=== PATIENT | female | born 1925 | race Caucasian/White ===

== ENCOUNTER 2016-07-17 11:18 | Outpatient (CLI) | payer MEDICARE ==
[2016-07-17 12:36] LABS: #Basophils 0.1 thou/uL (0.0-0.2); #Eosinphils 0.6 thou/uL (0.0-0.7); #Lymphocytes 1.7 thou/uL (1.20-3.40); #Monocytes 0.6 thou/uL (0.11-0.59); #Neutrophils 4.5 thou/uL (1.40-6.50); %Basophils 0.8 % (0.0-1.0); %Eosinophils 7.9 % (0.0-10.0); %Lymphocytes 22.4 % (21.0-51.0); %Monocytes 8.1 % (0.0-10.0); Hematocrit 46.1 % (36.0-47.0); Mean Platelet Volume 8.7 fL (7.4-10.4); Red Blood Cell (RBC) Count 5.23 mill/uL (4.20-5.40); White Blood Cell (WBC) Count 7.5 thou/uL (4.8-10.8)
[2016-07-17 12:47] LABS: ALT (SGPT) 21 U/L (0-55); AST (SGOT) 24 U/L (5-34); Alkaline Phosphatase 106 U/L (40-150); Anion Gap 13 mmol/L (10-20); BUN (Urea Nitrogen) 13 mg/dL (9.8-20.1); Bilirubin, Direct 0.6 mg/dL (0.1-0.3); Bilirubin, Total 1.8 mg/dL (0.2-1.2); Calc. Creatinine Clearance 0 mL/min (70-130); Calcium 9.5 mg/dL (7.8-10.44); Carbon Dioxide 24 mmol/L (23-31); Chloride 105 mmol/L (98-107); Estimated GFR-MDRD 76; LDL Cholesterol, Calculated 60 mg/dL; Protein, Total 7.1 g/dL (5.8-8.1)
[2016-07-17 12:53] LABS: Bilirubin Negative (Negative); Blood, Urine Negative (Negative); Glucose, Urine (Dipstick) Negative (Negative); Ketone, Urine Negative (Negative); Nitrite Negative (Negative); Protein, Urine (Dipstick) Negative (Neg-Trace); Urobilinogen 0.2 mg/dL (0.2-1.0)
[2016-07-17 13:08] LABS: Hemoglobin A1c 6.1 % (4.0-6.0)
[2016-07-17 13:27] LABS: Bacteria/HPF Rare-Few HPF (None Seen); RBC/HPF None Seen HPF (0-3); Squamous Epithelial 0-3 HPF (0-3); WBC/HPF 0-3 HPF (0-3)
== END 2016-07-17 11:19 | disposition home or self-care (01) ==
LOC: NAVSJIPCSP 11:18
PROVIDERS: ATTEND Family Medicine
DX: I10 Essential (primary) hypertension (principal); E78.2 Mixed hyperlipidemia; K21.9 Gastro-esophageal reflux disease without esophagitis; N39.0 Urinary tract infection, site not specified; Z79.899 Other long term (current) drug therapy
CPT/HCPCS: 36415; 80048; 80061; 80076; 81003; 81015; 83036; 84443; 85025

== ENCOUNTER 2016-11-20 10:33 | Outpatient (CLI) | payer MEDICARE ==
[2016-11-20 12:28] LABS: #Basophils 0.1 thou/uL (0.0-0.2); #Eosinphils 0.5 thou/uL (0.0-0.7); #Lymphocytes 1.6 thou/uL (1.20-3.40); #Monocytes 0.6 thou/uL (0.11-0.59); %Basophils 1.2 % (0.0-1.0); %Eosinophils 7.8 % (0.0-10.0); %Lymphocytes 23.7 % (21.0-51.0); %Monocytes 8.6 % (0.0-10.0); %Neutrophils 58.7 % (42.0-75.0); Hemoglobin 14.6 g/dL (12.0-16.0); Mean Corpuscular Volume 87.3 fl (81.0-99.0); Mean Platelet Volume 9.1 fL (7.4-10.4); Platelet Count 220 thou/uL (130-400); Red Blood Cell (RBC) Count 5.39 mill/uL (4.20-5.40); White Blood Cell (WBC) Count 6.8 thou/uL (4.8-10.8)
[2016-11-20 13:03] LABS: Hemoglobin A1c 6.1 % (4.0-6.0)
[2016-11-20 13:04] LABS: ALT (SGPT) 36 U/L (8-55); AST (SGOT) 33 U/L (5-34); Albumin 4.3 g/dL (3.4-4.8); Alkaline Phosphatase 106 U/L (40-150); Anion Gap 16 mmol/L (10-20); BUN (Urea Nitrogen) 14 mg/dL (9.8-20.1); Bilirubin, Direct 0.6 mg/dL (0.1-0.3); Bilirubin, Total 1.8 mg/dL (0.2-1.2); Calc. Creatinine Clearance 0 mL/min (70-130); Calcium 9.4 mg/dL (7.8-10.44); Carbon Dioxide 25 mmol/L (23-31); Cardiac Risk 2.7 (Less than 4.5); Chloride 102 mmol/L (98-107); Cholesterol 180 mg/dl (< 200 Desired); Estimated GFR-MDRD 72; Glucose 108 mg/dL (83-110); HDL Cholesterol 67 mg/dL (>60 Neg Risk); LDL Cholesterol, Calculated 80 mg/dL; Potassium 4.5 mmol/L (3.5-5.1); Protein, Total 6.9 g/dL (6.0-8.3); Sodium 138 mmol/L (136-145); Triglycerides 164 mg/dL (Less than 150)
[2016-11-20 14:05] LABS: Bilirubin Negative (Negative); Blood, Urine Trace (Negative); Clarity Clear (Clear); Glucose, Urine (Dipstick) Negative (Negative); Leukocyte Small (Negative); Nitrite Negative (Negative); Protein, Urine (Dipstick) Negative (Neg-Trace); Urobilinogen 0.2 mg/dL (0.2-1.0)
[2016-11-20 14:19] LABS: RBC/HPF 0-3 HPF (0-3)
[2016-11-20 14:20] LABS: Bacteria/HPF Rare-Few HPF (None Seen); Other Microscopic Description NO; Squamous Epithelial 0-3 HPF (0-3)
== END 2016-11-20 10:34 | disposition home or self-care (01) ==
LOC: NAVSJIPCSP 10:33
PROVIDERS: ATTEND Family Medicine
DX: E78.2 Mixed hyperlipidemia (principal); I10 Essential (primary) hypertension; R33.9 Retention of urine, unspecified; K21.9 Gastro-esophageal reflux disease without esophagitis; N39.0 Urinary tract infection, site not specified; Z79.899 Other long term (current) drug therapy
CPT/HCPCS: 36415; 80048; 80061; 80076; 81003; 81015; 83036; 84443; 85025

== ENCOUNTER 2016-12-11 20:41 | Emergency (ER) | payer MEDICARE ==
[~2016-12-11 20:41] MED LIST: Iopamidol 370 76% 100 ML VIAL ONE
[2016-12-11] MEDS ORDERED: Ondansetron HCl/PF 4 MG/2 ML Vial ONE (21:10)
[2016-12-11 21:32] LABS: ALT (SGPT) 66 U/L (8-55); AST (SGOT) 74 U/L (5-34); Albumin 4.2 g/dL (3.4-4.8); Alkaline Phosphatase 136 U/L (40-150); Anion Gap 17 mmol/L (10-20); BUN (Urea Nitrogen) 16 mg/dL (9.8-20.1); Bilirubin, Total 1.6 mg/dL (0.2-1.2); Calc. Creatinine Clearance 0 mL/min (70-130); Carbon Dioxide 21 mmol/L (23-31); Chloride 101 mmol/L (98-107); Estimated GFR-MDRD 81; Globulin 3.1 g/dL (2.4-3.5); Glucose 150 mg/dL (83-110); Potassium 3.5 mmol/L (3.5-5.1); Protein, Total 7.3 g/dL (6.0-8.3); Sodium 135 mmol/L (136-145)
[2016-12-11 21:34] LABS: #Basophils 0.1 thou/uL (0.0-0.2); #Eosinphils 0.3 thou/uL (0.0-0.7); #Lymphocytes 1.1 thou/uL (1.20-3.40); #Monocytes 0.5 thou/uL (0.11-0.59); #Neutrophils 10.8 thou/uL (1.40-6.50); %Basophils 0.7 % (0.0-1.0); %Eosinophils 2.5 % (0.0-10.0); %Lymphocytes 8.2 % (21.0-51.0); %Monocytes 3.8 % (0.0-10.0); %Neutrophils 84.9 % (42.0-75.0); CKMB 1.5 ng/mL (0-6.6); Hemoglobin 14.2 g/dL (12.0-16.0); Mean Corpuscular HGB CONC 32.5 g/dL (32.0-36.0); Mean Corpuscular Hemoglobin 27.4 pg (27.0-31.0); Mean Corpuscular Volume 84.2 fl (81.0-99.0); Mean Platelet Volume 9.1 fL (7.4-10.4); Platelet Count 177 thou/uL (130-400); RBC Distribution Width 12.4 % (11.5-14.5); Red Blood Cell (RBC) Count 5.17 mill/uL (4.20-5.40); Troponin I 0.024 ng/mL (< 0.028); White Blood Cell (WBC) Count 12.8 thou/uL (4.8-10.8)
--- NOTE | 2016-12-11 21:58 | RAD ---
PORTABLE SEMIUPRIGHT FRONTAL CHEST RADIOGRAPH 12/11/16 COMPARISON: 03/30/14. HISTORY: Nausea, chills. FINDINGS: Hazy increased linear density is noted within the left lung base, stable. There is increased linear interstitial density within both lungs, stable as well. There is no pneumothorax, pleural fluid, foc al consolidation, or alveolar edema. IMPRESSION: Chronic linear densities as detailed above, most prominent within the left lung base. No acute findi ngs. POS: [facility]
[2016-12-11 22:06] LABS: Bilirubin Negative (Negative); Blood, Urine Trace (Negative); Clarity Clear (Clear); Glucose, Urine (Dipstick) Negative (Negative); Leukocyte Large (Negative); Nitrite Negative (Negative); Protein, Urine (Dipstick) 30 mg/dL (Neg-Trace); Urobilinogen 0.2 mg/dL (0.2-1.0)
[2016-12-11 22:23] LABS: Bacteria/HPF Rare-Few HPF (None Seen); RBC/HPF 0-3 HPF (0-3); Renal Epithelial 0-3 HPF (0-3); Squamous Epithelial 0-3 HPF (0-3); WBC/HPF 0-3 HPF (0-3)
[2016-12-11] MEDS ORDERED: metroNIDAZOLE 500 MG TAB ONE (23:00)
[2016-12-11] MEDS ORDERED: Amoxicillin/Potassium Clav 875 MG TAB ONE (23:00)
--- NOTE | 2016-12-11 23:35 | CT ---
CT OF THE ABDOMEN AND PELVIS 12/11/16 COMPARISON: 06/27/12 HISTORY: Nausea, chills, lower abdominal pain. TECHNIQUE: Serial axial CT imaging is obtained at 5 mm intervals from lung bases through pubic symphysis with i ntravenous contrast. Coronal reformatted imaging obtained. FINDINGS: The lack of oral contrast limits assessment of the bowel. The imaged lung bases are grossly unremarkable. No free intraperitoneal air or fluid is seen. The ut erus appears surgically absent as does the gallbladder. A stable tiny hypodensity is seen within the left lobe of the liver. Splenic granulomata are present . Pancreas, adrenal glands, and kidneys demonstrate no acute findings. There is extensive diverticulosis of the sigmoid colon with no evidence for diverticulitis. There is an umbilical hernia which partially contains a portion of the transverse colon. There is no associa yuri bowel obstruction seen. There is a subtle area of mesenteric stranding adjacent to the terminal ileum. The terminal ileum is mildly thick walled as well. The prior examination demonstrated a few s mall bowel diverticula in this region. Thus, this may signify small bowel diverticulitis in the annika on of the terminal ileum. There is no evidence for a fluid collection/abscess. There is scattered atherosclerotic calcificatio n of the abdominal aorta and its branches. No pelvic retroperitoneal or mesenteric lymphadenopathy is seen. No acute osseous abnormality is not ed. Lower lumbar spine facet hypertrophic changes are present. There is an anterior wedge compressio n fracture involving the T12 vertebral body, chronic in nature. IMPRESSION: 1. Focal area of small bowel wall thickening of the terminal ileum with mild adjacent inflammat ory fat stranding (best seen on image 40). This is suspicious for a short segment focal area of smal l bowel diverticulitis. Nonspecific inflammatory change, be it infectious or ischemic is a possibili ty. No evidence for bowel obstruction or abscess. 2. Additional incidental findings, including small ventral hernia and sigmoid diverticulosis. POS: [facility]
== END 2016-12-11 23:19 | disposition home or self-care (01) ==
LOC: NAV ERS 20:41
DX: K57.12 Diverticulitis of small intestine without perforation or abscess without bleeding (principal); E78.5 Hyperlipidemia, unspecified; J45.909 Unspecified asthma, uncomplicated
CPT/HCPCS: 71010; 74177; 80053; 81003; 81015; 82248; 82553; 83605; 83880; 84484; 85025; 87086; 93005; 94640; 94760; 96374; J2405; J7620